=== PATIENT | male | born 1955 ===

== ENCOUNTER 2018-08-19 20:48 | Emergency (ER) | payer OTHER ==
[2018-08-19] MEDS ORDERED: Morphine 4 MG/ML VIAL ONE ×2 (21:08→22:39)
[2018-08-19] MEDS ORDERED: Ondansetron PF 4 MG/2 ML Vial ONE (21:08)
[2018-08-19] MEDS ORDERED: Ketorolac Tromethamine 30 MG/ML VIAL ONE (21:18)
[2018-08-19 21:22] LABS: #Basophils 0.1 thou/uL (0.0-0.2); #Lymphocytes 1.1 thou/uL (1.20-3.40); #Monocytes 0.7 thou/uL (0.11-0.59); #Neutrophils 4.9 thou/uL (1.40-6.50); %Basophils 1.1 % (0.0-1.0); %Eosinophils 0.6 % (0.0-10.0); %Lymphocytes 15.9 % (21.0-51.0); %Monocytes 9.6 % (0.0-10.0); %Neutrophils 72.8 % (42.0-75.0); Hemoglobin 16.3 g/dL (14.0-18.0); Mean Corpuscular Hemoglobin 31.5 pg (27.0-31.0); Mean Corpuscular Volume 92.6 fL (78.0-98.0); Mean Platelet Volume 7.2 fL (7.4-10.4); Platelet Count 199 thou/uL (130-400); RBC Distribution Width 12.2 % (11.5-14.5); Red Blood Cell (RBC) Count 5.19 mill/uL (4.70-6.10); White Blood Cell (WBC) Count 6.7 thou/uL (4.8-10.8)
[2018-08-19 21:35] LABS: Bacteria/HPF None Seen HPF (None Seen); Bilirubin Negative (Negative); Blood, Urine Large (Negative); Clarity Cloudy (Clear); Glucose, Urine (Dipstick) Negative (Negative); Hyaline Casts/LPF NONE SEEN LPF (0-3 Hyaline); Leukocyte Negative (Negative); Nitrite Negative (Negative); Protein, Urine (Dipstick) 30 mg/dL (Neg-Trace); RBC/HPF GREATER THAN 50-TNTC HPF (0-3); Squamous Epithelial 0-3 HPF (0-3); Urobilinogen 0.2 mg/dL (0.2-1.0); WBC/HPF 0-3 HPF (0-3); pH, Urine 7.5 (5.0-9.0)
[2018-08-19 21:38] LABS: ALT (SGPT) 36 U/L (8-55); AST (SGOT) 29 U/L (5-34); Albumin 4.5 g/dL (3.4-4.8); Alkaline Phosphatase 54 U/L (40-150); Anion Gap 18 mmol/L (10-20); BUN (Urea Nitrogen) 16 mg/dL (8.4-25.7); Bilirubin, Total 0.7 mg/dL (0.2-1.2); Calc. Creatinine Clearance 0 mL/min (70-130); Calcium 10.3 mg/dL (7.8-10.44); Carbon Dioxide 22 mmol/L (23-31); Chloride 104 mmol/L (98-107); Estimated GFR-MDRD 51; Globulin 2.8 g/dL (2.4-3.5); Glucose 142 mg/dL (80-115); Potassium 3.5 mmol/L (3.5-5.1); Protein, Total 7.3 g/dL (5.8-8.1); Sodium 140 mmol/L (136-145)
--- NOTE | 2018-08-19 21:49 | CT ---
CT of abdomen and pelvis: 08/19/2018 COMPARISON: 09/17/2010 HISTORY: Right flank pain TECHNIQUE: Axial CT imaging at 5 mm intervals from lung bases through pubic symphysis without contras t. Coronal reformatted imaging obtained. FINDINGS: Lack of contrast media limits assessment of the viscera, bowel, vascular structures, and fo r lymphadenopathy. The imaged lung bases demonstrate no acute findings. There are a few tiny hypodensities within the he patic parenchyma suggesting small cysts, small to definitively characterize and grossly unchanged. The spleen, gallbladder, pancreas, and adrenal glands appear grossly unremarkable. There is mild hydronephrosis and hydroureter on the right. There is a punctate stone within the lower pole of the right kidney. There is a stone within the distal right ureter, best seen on coronal image 89 and axial image 67 [place] approximately 2 mm. There is a cyst in the midpole of the left kidney anteriorly measuring 1.9 cm. There is no nephrolithiasis or evidence for obstructive uropathy on the left. There is a small fat-containing inguinal hernia on the left. Limited assessment of the bowel demonstrates no evidence for inflammatory change or obstruction. The appendix appears grossly unremarkable. Review of the osseous structures demonstrates no acute osseous abnormality. There is multilevel lower lumbar spine postoperative and degenerative change present. IMPRESSION: Mild right-sided obstructive uropathy secondary to a 2 mm obstructing stone within the di stal right ureter.
== END 2018-08-19 22:39 | disposition home or self-care (01) ==
LOC: SCSER 20:48
DX: N13.2 Hydronephrosis with renal and ureteral calculous obstruction (principal); Z87.442 Personal history of urinary calculi
CPT/HCPCS: 74176; 80053; 81003; 81015; 85025; 96361; 96374; 96375; 96376; J1885; J2270; J2405